=== PATIENT | male | born 1975 | race Caucasian/White ===

== ENCOUNTER 2018-06-03 20:57 | Emergency (ER) | payer OTHER ==
[2018-06-03] MEDS ORDERED: NS 0.9% 1000 ML* 1,000 ML IV ONE ×2 (21:17→21:57)
[2018-06-03] MEDS ORDERED: LORazepam INJ* 2 MG/ML 1 ML VIAL IV PUSH ONE (21:18)
--- NOTE | 2018-06-03 21:19 | ED ---
Upper Extremity Pain - HPI Summary HPI Summary: This patient is a 42 year old M presenting to [facility] with a chief complaint of paralysis in his L fifth digit since 1 hour ago. The patient rates the pain 2/ 10 in severity. Patient reports numbness in L fifth digit and numbness in L leg. He has pain in L elbow, L forearm, and L fifth digit secondary to movement. Patient denies falling. He was playing drums all day. He does not take any medications. Patient drank some alcohol tonight, and he has not had much water today. - History of Current Complaint Stated Complaint: POSS DEHYDRATION/ANXIETY Time Seen by Provider: 06/03/18 21:07 Hx Obtained From: Patient Mechanism Of Injury: Unknown Onset/Duration: Started Hours Ago - 1 hour ago, Still Present Timing: Constant Pain Location: Elbow - L elbow pain secondary to movement, Forearm - L forearm pain secondary to movement, Hand - L 5th digit secondary to movement Aggravating Factor(s): Movement - Allergies/Home Medications Allergies/Adverse Reactions: Allergies Allergy/AdvReac Type Severity Reaction Status Date / Time No Known Allergies Allergy Verified 06/03/18 21:08 Home Medications: Home Medications NK [No Home Medications Reported] 06/03/18 [History Confirmed 06/03/18] PMH/Surg Hx/FS Hx/Imm Hx Endocrine/Hematology History: Denies: Hx Diabetes Cardiovascular History: Denies: Hx Congenital Heart Disease Infectious Disease History: No Infectious Disease History: Denies: Traveled Outside the [place] in Last 30 Days - Family History Known Family History: Positive: Hypertension, Renal Disease - Renal cyst - Social History Lives: With Family Alcohol Use: Occasionally Substance Use Type: Reports: None Review of Systems Negative: Fever Positive: Other - Pain in L elbow, L forearm, and L fifth digit secondary to movement. Positive: Numbness - in L 5th digit, numbness in L leg All Other Systems Reviewed And Are Negative: Yes Physical Exam - Summary Physical Exam Summary: VITAL SIGNS: Reviewed. GENERAL: Patient is a well-developed and nourished MALE who is lying comfortable in the stretcher. Patient is not in any acute respiratory distress. HEAD AND FACE: No signs of trauma. No ecchymosis, hematomas or skull depressions. No sinus tenderness. EYES: PERRLA, EOMI x 2, No injected conjunctiva, no nystagmus. EARS: Hearing grossly intact. Ear canals and tympanic membranes are within normal limits. MOUTH: Oropharynx within normal limits. NECK: Supple, trachea is midline, no adenopathy, no JVD, no carotid bruit, no c- spine tenderness, neck with full ROM. CHEST: Symmetric, no tenderness at palpation LUNGS: Clear to auscultation bilaterally. No wheezing or crackles. CVS: Regular rate and rhythm, S1 and S2 present, no murmurs or gallops appreciated. ABDOMEN: Soft, non-tender. No signs of distention. No rebound no guarding, and no masses palpated. Bowel sounds are normal. EXTREMITIES: L claws hand, which means he has hyperextension of the fourth and fifth MCP and flexion of the DIP and PIP. NEURO: Alert and oriented x 3. No acute neurological deficits. Speech is normal and follows commands. SKIN: Dry and warm Triage Information Reviewed: Yes Vital Signs On Initial Exam: Initial Vitals Pulse Resp Pulse Ox 106 14 95 06/03/18 21:02 06/03/18 21:02 06/03/18 21:02 Vital Signs Reviewed: Yes Diagnostics - Vital Signs Vital Signs Temp Pulse Resp BP Pulse Ox 06/03/18 21:09 98.7 F 100 18 162/96 98 06/03/18 21:03 101 17 162/96 96 06/03/18 21:02 106 14 95 - Laboratory Result Diagrams: 06/03/18 21:21 06/03/18 21:21 Lab Statement: Any lab studies that have been ordered have been reviewed, and results considered in the medical decision making process. Re-Evaluation - Re-Evaluation 1 Re-Evaluation Time: 22:49 Change: Improved Comment: Patient is asymptomatic at this time. Course/Dx - Course Assessment/Plan: This patient is a 42 year old M presenting to [facility] with a chief complaint of paralysis in his L fifth digit since 1 hour ago. He reported to have been drinking alcohol. He had not drank much water for the past day. Lab results show that his serum alcohol is a 286 H. Patient is being discharged home with diagnoses of alcohol intoxication, dehydration, and anxiety. - Diagnoses Provider Diagnoses: Alcohol intoxication, Dehydration, Anxiety Discharge - Sign-Out/Discharge Documenting (check all that apply): Patient Departure - D/C - Discharge Plan Condition: Stable Disposition: HOME Patient Education Materials: Dehydration (ED), Alcohol Intoxication (ED), Anxiety (ED) Referrals: No Primary Care Phys,NOPCP [Medical Doctor] - (Refer to the [facility] if you do not have a PCP. ) Additional Instructions: RETURN TO THE EMERGENCY DEPARTMENT FOR CHANGING OR WORSENING SYMPTOMS. FOLLOW UP WITH PCP IN 1-2 DAYS. - Attestation Statements Document Initiated by Scribe: Yes Documenting Scribe: Ramirez Reis Provider For Whom Scribe is Documenting (Include Credential): Michael Diego MD Scribe Attestation: IRamirez, scribed for Michael Diego MD on 06/04/18 at 0023.
[2018-06-03 21:35] LABS: ABS Basophils 0.1 10^3/ul (0-0.2); ABS Eosinophils 0 10^3/ul (0-0.6); ABS Lymphocytes 2.4 10^3/ul (1.0-4.8); ABS Monocytes 0.7 10^3/ul (0-0.8); ABS Neutrophils 2.7 10^3/ul (1.5-7.7); ABS Nucleated RBC 0 10^3/ul; Eosinophil % 0.8 % (0-6); Hematocrit 47 % (42-52); Hemoglobin 16.3 g/dl (14.0-18.0); Lymphocyte % 40.1 % (25-47); Mean Corpuscular HGB Conc 35 g/dl (31-36); Mean Corpuscular Hemoglobin 33 pg (27-31); Mean Corpuscular Volume 94 fL (80-94); Nucleated Red Blood Cells % 0.1; Platelet Count 249 10^3/ul (150-450); Red Cell Distribution Width 13 % (10.5-15); White Blood Count 5.9 10^3/ul (3.5-10.8)
[2018-06-03] MEDS ORDERED: Magnesium Sulfate 2 GM IV* 2 GM/50 ML BAG IVPB ONE (21:57)
[2018-06-03] MEDS ORDERED: Potassium Chloride LIQUID* 20 MEQ PACKET PO ONE (21:57)
[2018-06-03 23:07] VITALS: BP 132/80
== END 2018-06-03 23:06 | disposition home or self-care (01) ==
LOC: ED 20:57
DX: F10.129 Alcohol abuse with intoxication, unspecified (principal); E86.0 Dehydration; F41.9 Anxiety disorder, unspecified; M25.522 Pain in left elbow; M79.632 Pain in left forearm
CPT/HCPCS: 36415; 80053; 80320; 82550; 83605; 83735; 85025; 86140; 96365; 96375; 99284; A9270-GY; G0480; J2060; J3475